=== PATIENT | male | born 1960 | race Caucasian/White ===

== ENCOUNTER 2017-09-15 07:07 | Day surgery (SDC) | payer OTHER ==
[~2017-09-15] VITALS: Ht 175.3 cm; Wt 70.3 kg
[2017-09-15 07:31] VITALS: BP 163/90
[2017-09-15 10:36] VITALS: BP 135/94
== END 2017-09-15 10:20 | disposition home or self-care (01) ==
LOC: GI 07:07 → OR 09:30 → GI 09:30
PROVIDERS: Internal Medicine Gastroenterology
PROC: 0DJD8ZZ Inspection of Lower Intestinal Tract, Via Natural or Artificial Opening Endoscopic (ICD-10-PCS; principal; 2017-09-15 08:30)
DX: Z12.11 Encounter for screening for malignant neoplasm of colon (principal); K57.30 Diverticulosis of large intestine without perforation or abscess without bleeding; K64.8 Other hemorrhoids
CPT/HCPCS: 45378; J1200; J1610; J2250; J2310; J3010; J3490